=== PATIENT | male | born 1950 | race Caucasian/White ===

== ENCOUNTER 2018-02-14 16:54 | Emergency (ER) | payer OTHER ==
[~2018-02-14] VITALS: Ht 175.2 cm; Wt 79.4 kg
[~2018-02-14 16:54] MED LIST: BACTROBAN OINT22 GM PO; KEFLEX500 MG PO; NORVASC5 MG PO; PROGRAF5 MG PO
[2018-02-14] MEDS ORDERED: KEFLEX500 M1 PO (17:04)
[2018-02-14] MEDS ORDERED: NAPROSYN500 MG PO (17:04)
[2018-02-14] MEDS ORDERED: CHLORZOXAZONE500 M2 PO (17:04)
[2018-02-14 17:38] VITALS: BP 153/75
== END 2018-02-14 18:28 | disposition home or self-care (01) ==
LOC: ED 16:54
DX: S00.83XA Contusion of other part of head, initial encounter (principal); S13.9XXA Sprain of joints and ligaments of unspecified parts of neck, initial encounter; R03.0 Elevated blood-pressure reading, without diagnosis of hypertension; Z79.899 Other long term (current) drug therapy; V89.2XXA Person injured in unspecified motor-vehicle accident, traffic, initial encounter; Y93.89 Activity, other specified; Y92.488 Other paved roadways as the place of occurrence of the external cause; Y99.8 Other external cause status